=== PATIENT | female | born 1995 | race African-American/Black ===

== ENCOUNTER 2017-05-14 09:53 | Emergency (ER) | payer MEDICAID ==
[2016-04-07 05:18] VITALS: BMI 23.3
[~2017-05-14 09:53] MED LIST: COLACE100 MG PO; FERROUS SULFAT325 MG PO; IBUPROFEN600 MG PO; PERCOCET 5-3251 TAB PO; PRENATAL COMPLE1 TAB PO
[2017-05-14 11:00] LABS: BASOPHILS 0.3 % (0-2); EOSINOPHILS 0.4 % (0-7); HEMATOCRIT 37.8 % (36.0-48.0); HEMOGLOBIN 12.7 g/dL (12-16); IMMATURE GRANULOCYTES 0.3 % (0-5); LYMPHOCYTES 28.9 % (15-50); MCH 29.5 pg (26.0-34.0); MCHC 33.6 g/dL (31.0-37.0); MCV 87.9 fL (80.0-100.0); MEAN PLATELET VOLUME 10.2 fL (7.4-10.4); MONOCYTES 4.4 % (2-11); NEUTROPHILS 65.7 % (40-80); RDW 12.6 % (11.5-14.5); WBC 11.2 10x3/uL (4.8-10.8)
[2017-05-14 11:01] LABS: APPEARANCE CLOUDY (CLEAR); BILIRUBIN NEGATIVE (NEGATIVE); COLOR YELLOW (YELLOW); GLUCOSE NEGATIVE (NEGATIVE); KETONE MODERATE mg/dL (NEGATIVE); NITRITE NEGATIVE (NEGATIVE); PROTEIN 1+ mg/dL (NEGATIVE); SPECIFIC GRAVITY 1.025 (1.005-1.020); UROBILINOGEN NORMAL (NORMAL)
[2017-05-14 11:02] LABS: PLATELET COUNT 255 10x3/uL (130-400)
[2017-05-14 11:10] LABS: HCG SERUM NEGATIVE (NEGATIVE)
[2017-05-14 11:15] LABS: BACTERIA MANY /hpf (NONE SEEN); RED CELLS - URINE 0-5 /hpf (0-5)
[2017-05-14 11:16] LABS: ALBUMIN 4.2 g/dL (3.4-5.0); ALKALINE PHOSPHATASE 69 U/L (46-116); ALT (SGPT) 23 U/L (10-68); BILIRUBIN - TOTAL 0.32 mg/dL (0.2-1.3); CALC OSMOLALITY 278 mosm/kg (275-300); CALCIUM 8.9 mg/dL (8.5-10.1); CHLORIDE - SERUM 102 mmol/L (98-107); CREATININE - SERUM 0.8 mg/dL (0.6-1.3); GLUCOSE 115 mg/dL (74-106); POTASSIUM - SERUM 3.7 mmol/L (3.5-5.1); PROTEIN - SERUM 7.6 g/dL (6.4-8.2); SODIUM 139 mmol/L (136-145); UREA NITROGEN 12 mg/dL (7-18); eGFR NON AFRICAN AMERICAN > 90 mL/min (90-120)
== END 2017-05-14 12:50 | disposition home or self-care (01) ==
LOC: D.ER 09:53
PROVIDERS: Emergency Medicine
DX: R55 Syncope and collapse (principal); R11.10 Vomiting, unspecified; N39.0 Urinary tract infection, site not specified; N76.0 Acute vaginitis

== ENCOUNTER 2017-10-25 07:04 | Emergency (ER) | payer MEDICAID ==
[~2017-10-25] VITALS: Ht 165.1 cm; Wt 50.0 kg
[2017-10-25 07:29] VITALS: Ht 165.1 cm; Wt 50.0 kg
[2017-10-25 07:58] LABS: BASOPHILS 0.1 % (0-2); EOSINOPHILS 0.1 % (0-7); HEMATOCRIT 39.7 % (36.0-48.0); HEMOGLOBIN 13.1 g/dL (12-16); IMMATURE GRANULOCYTES 0.3 % (0-5); LYMPHOCYTES 6.5 % (15-50); MCH 29.8 pg (26.0-34.0); MCV 90.4 fL (80.0-100.0); MEAN PLATELET VOLUME 10.7 fL (7.4-10.4); MONOCYTES 5.9 % (2-11); NEUTROPHILS 87.1 % (40-80); RBC 4.39 10x6/uL (4.00-5.40); RDW 12.6 % (11.5-14.5); WBC 19.1 10x3/uL (4.8-10.8)
[2017-10-25 08:04] LABS: PLATELET COUNT 198 10x3/uL (130-400)
[2017-10-25 08:09] LABS: HCG URINE NEGATIVE (NEGATIVE)
[2017-10-25 08:15] LABS: APPEARANCE CLEAR (CLEAR); BILIRUBIN NEGATIVE (NEGATIVE); COLOR YELLOW (YELLOW); GLUCOSE NEGATIVE (NEGATIVE); KETONE NEGATIVE (NEGATIVE); NITRITE NEGATIVE (NEGATIVE); PROTEIN NEGATIVE (NEGATIVE); UROBILINOGEN NORMAL (NORMAL)
[2017-10-25 08:16] LABS: BACTERIA MODERATE /hpf (NONE SEEN); MUCUS <1+ /lpf (NONE SEEN); RED CELLS - URINE 0-5 /hpf (0-5); WHITE CELLS - URINE OCC /hpf (0-5)
[2017-10-25 08:17] LABS: ALBUMIN 4.2 g/dL (3.4-5.0); ALKALINE PHOSPHATASE 71 U/L (46-116); ALT (SGPT) 19 U/L (10-68); AMYLASE - SERUM 70 U/L (25-115); BILIRUBIN - TOTAL 0.38 mg/dL (0.2-1.3); CALC OSMOLALITY 282 mosm/kg (275-300); CALCIUM 8.6 mg/dL (8.5-10.1); CARBON DIOXIDE 26.6 mmol/L (21.0-32.0); CHLORIDE - SERUM 102 mmol/L (98-107); CREATININE - SERUM 0.7 mg/dL (0.6-1.3); LIPASE 119 U/L (73-393); POTASSIUM - SERUM 4.1 mmol/L (3.5-5.1); PROTEIN - SERUM 7.8 g/dL (6.4-8.2); SODIUM 140 mmol/L (136-145); UREA NITROGEN 12 mg/dL (7-18); eGFR NON AFRICAN AMERICAN > 90 mL/min (90-120)
[2017-10-25 08:21] LABS: GLUCOSE 178 mg/dL (74-106)
[2017-10-25] MEDS ORDERED: LOMOTIL TABLET1 TAB PO (08:27)
[2017-10-25] MEDS ORDERED: PHENERGAN25 MG RC (08:27)
[2017-10-25 10:45] VITALS: BP 111/39
== END 2017-10-25 10:45 | disposition home or self-care (01) ==
LOC: D.ER 07:04
PROVIDERS: Emergency Medicine
DX: K52.9 Noninfective gastroenteritis and colitis, unspecified (principal); R11.2 Nausea with vomiting, unspecified

== ENCOUNTER 2018-02-24 20:11 | Emergency (ER) | payer MEDICAID ==
[~2018-02-24] VITALS: Ht 165.1 cm; Wt 43.6 kg
[~2018-02-24 20:11] MED LIST changes: +LOMOTIL TABLET1 TAB PO; +PHENERGAN25 MG RC
[2018-02-24 20:12] VITALS: Ht 165.1 cm; Wt 43.6 kg
[2018-02-24 20:41] LABS: BASOPHILS 0 % (0-2); EOSINOPHILS 0.1 % (0-7); HEMOGLOBIN 11.4 g/dL (12-16); IMMATURE GRANULOCYTES 0.2 % (0-5); LYMPHOCYTES 12.7 % (15-50); MCH 29.7 pg (26.0-34.0); MCHC 34.5 g/dL (31.0-37.0); MCV 85.9 fL (80.0-100.0); MEAN PLATELET VOLUME 9.2 fL (7.4-10.4); MONOCYTES 4.2 % (2-11); NEUTROPHILS 82.8 % (40-80); PLATELET COUNT 188 10x3/uL (130-400); RBC 3.84 10x6/uL (4.00-5.40); RDW 12.3 % (11.5-14.5); WBC 9.5 10x3/uL (4.8-10.8)
[2018-02-24 20:55] LABS: ALBUMIN 3.7 g/dL (3.4-5.0); ALKALINE PHOSPHATASE 62 U/L (46-116); ALT (SGPT) 20 U/L (10-68); BILIRUBIN - TOTAL 0.32 mg/dL (0.2-1.3); CALC OSMOLALITY 267 mosm/kg (275-300); CALCIUM 9.7 mg/dL (8.5-10.1); CARBON DIOXIDE 25.3 mmol/L (21.0-32.0); CHLORIDE - SERUM 100 mmol/L (98-107); CREATININE - SERUM 0.6 mg/dL (0.6-1.3); POTASSIUM - SERUM 3.9 mmol/L (3.5-5.1); PROTEIN - SERUM 7.2 g/dL (6.4-8.2); SODIUM 135 mmol/L (136-145); UREA NITROGEN 6 mg/dL (7-18); eGFR NON AFRICAN AMERICAN > 90 mL/min (90-120)
[2018-02-24 21:00] LABS: GLUCOSE 95 mg/dL (74-106)
[2018-02-24 21:16] LABS: HCG - QUANTITATIVE (MATERNAL) 196903 mIU/mL
[2018-02-24 21:38] LABS: APPEARANCE CLEAR (CLEAR); COLOR YELLOW (YELLOW)
[2018-02-24 21:39] LABS: BILIRUBIN NEGATIVE (NEGATIVE); GLUCOSE NEGATIVE (NEGATIVE); KETONE MODERATE mg/dL (NEGATIVE); NITRITE NEGATIVE (NEGATIVE); PROTEIN NEGATIVE (NEGATIVE); RED CELLS - URINE NONE SEEN /hpf (0-5); SPECIFIC GRAVITY 1.005 (1.005-1.020); UROBILINOGEN NORMAL (NORMAL); WHITE CELLS - URINE NSEEN /hpf (0-5)
[2018-02-24 21:45] LABS: UDS - AMPHET NEGATIVE QUAL (NEGATIVE); UDS - BARB NEGATIVE QUAL (NEGATIVE); UDS - BENZO NEGATIVE QUAL (NEGATIVE); UDS - COCAINE NEGATIVE QUAL (NEGATIVE); UDS - OPIATE NEGATIVE QUAL (NEGATIVE); UDS - PCP NEGATIVE QUAL (NEGATIVE); UDS - THC POSITIVE QUAL (NEGATIVE)
[2018-02-24] MEDS ORDERED: ZOFRAN4 MG PO (22:05)
[2018-02-24 22:45] VITALS: BP 127/77
== END 2018-02-24 22:45 | disposition home or self-care (01) ==
LOC: D.ER 20:11
PROVIDERS: Family Medicine
DX: O21.9 Vomiting of pregnancy, unspecified (principal); Z3A.08 8 weeks gestation of pregnancy; E86.9 Volume depletion, unspecified

== ENCOUNTER 2018-03-10 09:37 | Emergency (ER) | payer MEDICAID ==
[~2018-03-10] VITALS: Ht 165.1 cm; Wt 43.2 kg
[~2018-03-10 09:37] MED LIST changes: +ZOFRAN4 MG PO
[2018-03-10 09:48] VITALS: Ht 165.1 cm; Wt 43.2 kg
[2018-03-10 10:43] LABS: BASOPHILS 0.2 % (0-2); EOSINOPHILS 0.3 % (0-7); HEMATOCRIT 36.5 % (36.0-48.0); HEMOGLOBIN 12.5 g/dL (12-16); IMMATURE GRANULOCYTES 0.7 % (0-5); LYMPHOCYTES 14.7 % (15-50); MCH 30.1 pg (26.0-34.0); MCHC 34.2 g/dL (31.0-37.0); MEAN PLATELET VOLUME 9.3 fL (7.4-10.4); MONOCYTES 5.1 % (2-11); PLATELET COUNT 204 10x3/uL (130-400); RBC 4.15 10x6/uL (4.00-5.40); WBC 9.6 10x3/uL (4.8-10.8)
[2018-03-10 10:54] LABS: APPEARANCE CLOUDY (CLEAR); BILIRUBIN NEGATIVE (NEGATIVE); COLOR YELLOW (YELLOW); EPITHELIAL CELLS 0-5 /hpf (0-5); GLUCOSE NEGATIVE (NEGATIVE); KETONE NEGATIVE (NEGATIVE); NITRITE NEGATIVE (NEGATIVE); PROTEIN NEGATIVE (NEGATIVE); RED CELLS - URINE NONE SEEN /hpf (0-5); SPECIFIC GRAVITY 1.005 (1.005-1.020); UROBILINOGEN NORMAL (NORMAL); WHITE CELLS - URINE NSEEN /hpf (0-5)
[2018-03-10 10:54] LABS: HCG SERUM POSITIVE (NEGATIVE)
[2018-03-10 11:04] LABS: ALBUMIN 3.5 g/dL (3.4-5.0); ALKALINE PHOSPHATASE 60 U/L (46-116); ALT (SGPT) 16 U/L (10-68); AMYLASE - SERUM 95 U/L (25-115); BILIRUBIN - TOTAL 0.17 mg/dL (0.2-1.3); CALC OSMOLALITY 264 mosm/kg (275-300); CALCIUM 9.2 mg/dL (8.5-10.1); CARBON DIOXIDE 25.9 mmol/L (21.0-32.0); CHLORIDE - SERUM 99 mmol/L (98-107); CREATININE - SERUM 0.4 mg/dL (0.6-1.3); GLUCOSE 89 mg/dL (74-106); LIPASE 149 U/L (73-393); POTASSIUM - SERUM 3.8 mmol/L (3.5-5.1); PROTEIN - SERUM 7.7 g/dL (6.4-8.2); SODIUM 134 mmol/L (136-145); UREA NITROGEN 8 mg/dL (7-18); eGFR NON AFRICAN AMERICAN > 90 mL/min (90-120)
[2018-03-10] MEDS ORDERED: ZOFRAN4 MG PO (13:55)
[2018-03-10 14:16] VITALS: BP 129/67
== END 2018-03-10 14:15 | disposition home or self-care (01) ==
LOC: D.ER 09:37
PROVIDERS: Family Medicine
DX: O21.0 Mild hyperemesis gravidarum (principal); Z3A.00 Weeks of gestation of pregnancy not specified

== ENCOUNTER 2018-03-23 16:31 | Emergency (ER) | payer MEDICAID ==
[~2018-03-23] VITALS: Ht 165.1 cm; Wt 46.8 kg
[2018-03-23 16:47] VITALS: Ht 165.1 cm; Wt 46.8 kg
[2018-03-23 17:08] LABS: BASOPHILS 0.1 % (0-2); EOSINOPHILS 0.3 % (0-7); HEMATOCRIT 34.5 % (36.0-48.0); HEMOGLOBIN 11.5 g/dL (12-16); IMMATURE GRANULOCYTES 0.5 % (0-5); LYMPHOCYTES 9.5 % (15-50); MCH 29.9 pg (26.0-34.0); MCHC 33.3 g/dL (31.0-37.0); MCV 89.8 fL (80.0-100.0); MEAN PLATELET VOLUME 9.2 fL (7.4-10.4); NEUTROPHILS 83.6 % (40-80); PLATELET COUNT 169 10x3/uL (130-400); RBC 3.84 10x6/uL (4.00-5.40); RDW 12.8 % (11.5-14.5); WBC 14.8 10x3/uL (4.8-10.8)
[2018-03-23 17:22] LABS: ALBUMIN 2.8 g/dL (3.4-5.0); ALKALINE PHOSPHATASE 52 U/L (46-116); ALT (SGPT) 13 U/L (10-68); BILIRUBIN - TOTAL 0.07 mg/dL (0.2-1.3); CALC OSMOLALITY 274 mosm/kg (275-300); CALCIUM 7.9 mg/dL (8.5-10.1); CARBON DIOXIDE 24.4 mmol/L (21.0-32.0); CHLORIDE - SERUM 104 mmol/L (98-107); CREATININE - SERUM 0.5 mg/dL (0.6-1.3); GLUCOSE 84 mg/dL (74-106); POTASSIUM - SERUM 3.3 mmol/L (3.5-5.1); PROTEIN - SERUM 6.4 g/dL (6.4-8.2); SODIUM 139 mmol/L (136-145); UREA NITROGEN 7 mg/dL (7-18); eGFR NON AFRICAN AMERICAN > 90 mL/min (90-120)
[2018-03-23 17:44] LABS: HCG - QUANTITATIVE (MATERNAL) 103845 mIU/mL
[2018-03-23 17:54] LABS: APPEARANCE HAZY (CLEAR); BILIRUBIN NEGATIVE (NEGATIVE); COLOR YELLOW (YELLOW); GLUCOSE NEGATIVE (NEGATIVE); KETONE NEGATIVE (NEGATIVE); NITRITE NEGATIVE (NEGATIVE); PROTEIN NEGATIVE (NEGATIVE); UROBILINOGEN NORMAL (NORMAL)
[2018-03-23 17:56] LABS: AMORPHOUS SEDIMENT >1+ /lpf (NONE SEEN); BACTERIA MODERATE /hpf (NONE SEEN); EPITHELIAL CELLS 0-5 /hpf (0-5); RED CELLS - URINE 0-5 /hpf (0-5); WHITE CELLS - URINE 0-5 /hpf (0-5)
[2018-03-23] MEDS ORDERED: ZOFRAN4 MG PO (19:02)
[2018-03-23 20:02] VITALS: BP 112/61
== END 2018-03-23 20:03 | disposition home or self-care (01) ==
LOC: D.ER 16:31
PROVIDERS: Family Medicine
DX: O21.0 Mild hyperemesis gravidarum (principal); Z3A.12 12 weeks gestation of pregnancy

== ENCOUNTER 2018-04-12 09:45 | Inpatient (IN) | payer MEDICAID ==
[~2018-04-12] VITALS: Ht 165.1 cm; Wt 50.8 kg
[2018-04-12 12:30] VITALS: BP 122/71
[2018-04-12 16:49] LABS: UDS - AMPHET NEGATIVE QUAL (NEGATIVE); UDS - BARB NEGATIVE QUAL (NEGATIVE); UDS - BENZO NEGATIVE QUAL (NEGATIVE); UDS - COCAINE NEGATIVE QUAL (NEGATIVE); UDS - OPIATE NEGATIVE QUAL (NEGATIVE); UDS - PCP NEGATIVE QUAL (NEGATIVE); UDS - THC POSITIVE QUAL (NEGATIVE)
[2018-04-12 16:56] LABS: AMORPHOUS SEDIMENT <1+ /lpf (NONE SEEN); APPEARANCE HAZY (CLEAR); BACTERIA FEW /hpf (NONE SEEN); BILIRUBIN NEGATIVE (NEGATIVE); COLOR YELLOW (YELLOW); GLUCOSE NEGATIVE (NEGATIVE); KETONE NEGATIVE (NEGATIVE); NITRITE NEGATIVE (NEGATIVE); PROTEIN NEGATIVE (NEGATIVE); RED CELLS - URINE OCC /hpf (0-5); SPECIFIC GRAVITY 1.015 (1.005-1.020); UROBILINOGEN NORMAL (NORMAL); WHITE CELLS - URINE OCC /hpf (0-5)
[2018-04-12 18:48] VITALS: Ht 165.1 cm; Wt 50.8 kg
--- NOTE | 2018-04-13 07:32 | NUR ---
DR. FERREIRA IN ROOM SPEAKING WITH PT. REVIEWS PLACENTA, WITH TELEPHONE ORDER GIVEN TO VALERIE CELESTE RN FOR PT TO DISCHARGE HOME. LEAVES PRESCRIPTIONS X 3 ON CHART.
[2018-04-13] MEDS ORDERED: CYTOTEC200 MCG (09:12)
[2018-04-13] MEDS ORDERED: NORCO 5/325 TAB1 TAB PO (09:12)
[2018-04-13] MEDS ORDERED: IBUPROFEN800 MG PO (09:18)
--- NOTE | 2018-04-13 17:16 | DS ---
PATIENT:DIONNE VALENTE :[birth year] MEDICAL RECORD: [id number] DISCHARGE SUMMARY ADMISSION DATE: 04/12/18 DISCHARGE DATE: 04/13/18 ADMISSION DATE: 04/12/2018. DISCHARGE DATE: 04/13/2018. ADMISSION DIAGNOSIS: Intrauterine demise at 15 weeks. DISCHARGE DIAGNOSES: 1. Intrauterine demise at 15 weeks. 2. Status post medically induced . PROCEDURE: Medically induced with Cytotec. ADMITTING PHYSICIAN: Dr. Pedro. DISCHARGING PHYSICIAN: Dr. Ferreira HISTORY OF PRESENT ILLNESS: See the H&P in the chart. SUMMARY OF HOSPITALIZATION: The patient was admitted to the hospital and received misoprostol. The patient went on to expel the fetus spontaneously. The placenta was retained and she received 2 doses of Hemabate with the subsequent delivery of placenta. The patient will be discharged home on oral Cytotec to assist with involution of the uterus as well as ibuprofen and [place] for pain. TRANSINT:[id number] Voice Confirmation ID: [id number] DOCUMENT ID: [id number] CHEVY FERREIRA MD at 1716 CC: [id number] DICTATION DATE: 04/13/18 0726 CERTIFIED INDUSTRIAL HYGIENIST: 04/13/18 0849 DIS IN 04/13/18 [facility] [address] [place] [address]
== END 2018-04-13 10:07 | disposition home or self-care (01) | DRG 779 ==
LOC: D.LD 09:45
PROVIDERS: ADMIT Obstetrics & Gynecology
PROC: 10E0XZZ Delivery of Products of Conception, External Approach (ICD-10-PCS; principal; 2018-04-12)
PROC: 3E0P7VZ Introduction of Hormone into Female Reproductive, Via Natural or Artificial Opening (ICD-10-PCS; 2018-04-12)
DX: O02.1 Missed abortion (principal); Z87.891 Personal history of nicotine dependence

== ENCOUNTER 2018-12-05 06:39 | Emergency (ER) | payer MEDICAID ==
[~2018-12-05] VITALS: Ht 165.1 cm; Wt 48.2 kg
[~2018-12-05 06:39] MED LIST changes: +CYTOTEC200 MCG; +IBUPROFEN800 MG PO; +NORCO 5/325 TAB1 TAB PO
[2018-12-05 06:50] VITALS: Ht 165.1 cm; Wt 48.2 kg
[2018-12-05 07:30] LABS: APPEARANCE CLOUDY (CLEAR); BACTERIA FEW /hpf (NONE SEEN); BILIRUBIN NEGATIVE (NEGATIVE); COLOR YELLOW (YELLOW); EPITHELIAL CELLS 0-5 /hpf (0-5); GLUCOSE NEGATIVE (NEGATIVE); KETONE NEGATIVE (NEGATIVE); NITRITE NEGATIVE (NEGATIVE); PROTEIN NEGATIVE (NEGATIVE); RED CELLS - URINE OCC /hpf (0-5); UROBILINOGEN NORMAL (NORMAL)
[2018-12-05 07:31] LABS: MUCUS <1+ /lpf (NONE SEEN); YEAST <1+ /hpf (NONE SEEN)
[2018-12-05 07:38] LABS: BASOPHILS 0.2 % (0-2); EOSINOPHILS 0.9 % (0-7); HEMATOCRIT 32.5 % (36.0-48.0); HEMOGLOBIN 11.1 g/dL (12-16); IMMATURE GRANULOCYTES 0.2 % (0-5); LYMPHOCYTES 19.7 % (15-50); MCHC 34.2 g/dL (31.0-37.0); MCV 81.9 fL (80.0-100.0); MEAN PLATELET VOLUME 9.3 fL (7.4-10.4); MONOCYTES 5.7 % (2-11); NEUTROPHILS 73.3 % (40-80); PLATELET COUNT 168 10x3/uL (130-400); RBC 3.97 10x6/uL (4.00-5.40); WBC 6.5 10x3/uL (4.8-10.8)
[2018-12-05 07:52] LABS: ALBUMIN 3.2 g/dL (3.4-5.0); ALKALINE PHOSPHATASE 64 U/L (46-116); ALT (SGPT) 8 U/L (10-68); AMYLASE - SERUM 62 U/L (25-115); BILIRUBIN - TOTAL 0.18 mg/dL (0.2-1.3); CALC OSMOLALITY 268 mosm/kg (275-300); CALCIUM 8.9 mg/dL (8.5-10.1); CARBON DIOXIDE 25.1 mmol/L (21.0-32.0); CHLORIDE - SERUM 102 mmol/L (98-107); CREATININE - SERUM 0.6 mg/dL (0.6-1.3); GLUCOSE 81 mg/dL (74-106); LIPASE 112 U/L (73-393); POTASSIUM - SERUM 3.6 mmol/L (3.5-5.1); PROTEIN - SERUM 7.2 g/dL (6.4-8.2); SODIUM 136 mmol/L (136-145); UREA NITROGEN 7 mg/dL (7-18); eGFR NON AFRICAN AMERICAN > 90 mL/min (90-120)
[2018-12-05 08:39] LABS: HCG URINE POSITIVE (NEGATIVE)
[2018-12-05] MEDS ORDERED: MONISTAT-7 VAG45 G1 VG (09:02)
[2018-12-05] MEDS ORDERED: MACROBID100 MG PO (09:02)
[2018-12-05] MEDS ORDERED: KEFLEX500 MG PO (09:02)
[2018-12-05 09:28] VITALS: BP 138/68
== END 2018-12-05 09:30 | disposition home or self-care (01) ==
LOC: D.ER 06:39
PROVIDERS: Family Medicine
DX: O23.42 Unspecified infection of urinary tract in pregnancy, second trimester (principal); Z3A.00 Weeks of gestation of pregnancy not specified; R10.30 Lower abdominal pain, unspecified

== ENCOUNTER → 2019-03-25 01:44 | Outpatient (CLI) | payer MEDICAID ==
[2018-12-05 06:50] VITALS: BMI 17.6
[~2019-03-25 01:44] MED LIST changes: +KEFLEX500 MG PO; +MACROBID100 MG PO; +MONISTAT-7 VAG45 G1 VG
[2019-03-25 02:29] LABS: APPEARANCE HAZY (CLEAR); BACTERIA NONE SEEN /hpf (NEGATIVE); BILIRUBIN NEGATIVE (NEGATIVE); COLOR YELLOW (YELLOW); EPITHELIAL CELLS NSEEN /hpf (0-5); GLUCOSE NEGATIVE (NEGATIVE); KETONE NEGATIVE (NEGATIVE); NITRITE NEGATIVE (NEGATIVE); PROTEIN NEGATIVE (NEGATIVE); SPECIFIC GRAVITY 1.015 (1.005-1.020); UROBILINOGEN NORMAL (NORMAL); WHITE CELLS - URINE 0-5 /hpf (NEGATIVE)
[2019-03-25 02:38] LABS: UDS - AMPHET NEGATIVE QUAL (NEGATIVE); UDS - BARB NEGATIVE QUAL (NEGATIVE); UDS - BENZO NEGATIVE QUAL (NEGATIVE); UDS - COCAINE NEGATIVE QUAL (NEGATIVE); UDS - OPIATE NEGATIVE QUAL (NEGATIVE); UDS - PCP NEGATIVE QUAL (NEGATIVE); UDS - THC POSITIVE QUAL (NEGATIVE)
== END | disposition home or self-care (01) ==
LOC: D.LDO 01:44
PROVIDERS: ATTEND Obstetrics & Gynecology
DX: O26.893 Other specified pregnancy related conditions, third trimester (principal); Z3A.28 28 weeks gestation of pregnancy; R10.9 Unspecified abdominal pain; M54.5 Low back pain

== ENCOUNTER → 2019-03-28 16:43 | Outpatient (CLI) | payer MEDICAID ==
[2018-12-05 06:50] VITALS: BMI 17.6
== END | disposition home or self-care (01) ==
LOC: D.LDO 16:43
PROVIDERS: ATTEND Student in an Organized Health Care Education/Training Program
DX: O36.8130 Decreased fetal movements, third trimester, not applicable or unspecified (principal); Z3A.29 29 weeks gestation of pregnancy

== ENCOUNTER 2019-04-07 10:46 | Emergency (ER) | payer MEDICAID ==
[2019-04-07 10:50] VITALS: BP 122/88; Ht 165.1 cm
== END 2019-04-07 13:19 | disposition left against medical advice (07) ==
LOC: D.ER 10:46
DX: R05 Cough (principal); R06.02 Shortness of breath; R11.0 Nausea

== ENCOUNTER → 2019-04-09 11:44 | Outpatient (CLI) | payer MEDICAID | END | disposition home or self-care (01) | LOC: D.LDO 11:44 | PROVIDERS: ATTEND Obstetrics & Gynecology | DX: O26.893 Other specified pregnancy related conditions, third trimester (principal); Z3A.31 31 weeks gestation of pregnancy; J11.1 Influenza due to unidentified influenza virus with other respiratory manifestations ==

== ENCOUNTER 2019-06-04 05:06 | Inpatient (IN) | payer MEDICAID ==
[~2019-06-04] VITALS: Ht 165.1 cm; Wt 64.9 kg
[2019-06-04 05:16] VITALS: BP 121/63; Ht 165.1 cm; Wt 64.9 kg
[2019-06-04 05:46] LABS: HEMATOCRIT 32.1 % (36.0-48.0); HEMOGLOBIN 10.6 g/dL (12-16); MCH 30.5 pg (26.0-34.0); MCV 92.5 fL (80.0-100.0); MEAN PLATELET VOLUME 9.1 fL (7.4-10.4); RBC 3.47 10x6/uL (4.00-5.40); RDW 14.2 % (11.5-14.5); WBC 9.3 10x3/uL (4.8-10.8)
[2019-06-04 06:03] LABS: BILIRUBIN NEGATIVE (NEGATIVE); GLUCOSE NEGATIVE (NEGATIVE); KETONE NEGATIVE (NEGATIVE); NITRITE NEGATIVE (NEGATIVE); SPECIFIC GRAVITY 1.015 (1.005-1.020); UROBILINOGEN NORMAL (NORMAL)
[2019-06-04 19:25] VITALS: BP 129/60
--- NOTE | 2019-06-04 20:15 | NUR ---
assisted up to br voided 600ml, assisted w/ pericare, iv converted to sl. ice packs and dermablast applied to arie area, transported to room 1257 via wc with sig other and baby
--- NOTE | 2019-06-04 21:30 | NUR ---
resting quietly in room with fob. non needs voiced at this time
--- NOTE | 2019-06-04 22:30 | NUR ---
w/o c/o at this time. no needs voiced.
--- NOTE | 2019-06-05 00:19 | NUR ---
sitting up in bed, ice packs given for arie area, no further needs voiced at this time
--- NOTE | 2019-06-05 02:18 | NUR ---
continues to sit up with fob, alert, w/o c/o pain or discomfort. no needs voiced
--- NOTE | 2019-06-05 04:17 | NUR ---
sitting up in bed holding , no needs voiced at this time
--- NOTE | 2019-06-05 04:32 | NUR ---
pt medicated for pain at 11/17. pt states that she is cramping. molly andre rn
[2019-06-05 06:09] LABS: RAPID PLASMA REAGIN Non Reactive (Non Reactive)
[2019-06-05 07:27] VITALS: BP 126/60
--- NOTE | 2019-06-05 07:27 | NUR ---
RECEIVED PT LYING SUPINE IN BED. REPOSITIONS MORE UP IN BED. PT DROWSY, BUT AAO X 3. VSS. HRRR WITHOUT AUDIBLE MURMUR. BBS CLEAR. BS HYPOACTIVE. ABDOMEN SOFT/NON-DISTENDED. FUNDUS FIRM AT U/1. RUBRA LOCHIA SCANT AMT. ABDOMINAL DRESSING DRY WITHOUT DRAINAGE NOTED. NEG HOMANS' SIGN. PPP. NO EDEMA NOTED TO BLE. SCDS ON BLE. PUMP ON. PIV SITE CLEAR TO LEFT HAND. NS WITH PITOCIN INFUSING AT 125 ML/HR. DILAUDID PL SQL PROGRAMMER INFUSING ORDERED. PT STATES INCISIONAL PAIN OF "5" ON 0-10 PAIN SCALE. STATES PAIN MED RELIEVING PAIN. RAY TO GRAVITY DRAINING CLEAR, YELLOW URINE. FRESH ICE PACK TO INCISION. PT PROVIDED SPLINT PILLOW AND INSTRUCTED ON TCDB AND INCENTIVE SPIROMETER. PT VERBALIZES UNDERSTANDING. SR UP X 2. CALL LIGHT IN REACH. CLEAR LIQUID DIET SERVED. PT DENIES NAUSEA.
[2019-06-05 07:48] LABS: BASOPHILS 0.2 % (0-2); EOSINOPHILS 0.5 % (0-7); HEMATOCRIT 28.9 % (36.0-48.0); HEMOGLOBIN 9.3 g/dL (12-16); IMMATURE GRANULOCYTES 0.4 % (0-5); LYMPHOCYTES 18.6 % (15-50); MCH 29.8 pg (26.0-34.0); MCHC 32.2 g/dL (31.0-37.0); MCV 92.6 fL (80.0-100.0); MEAN PLATELET VOLUME 8.9 fL (7.4-10.4); MONOCYTES 7.2 % (2-11); NEUTROPHILS 73.1 % (40-80); PLATELET COUNT 160 10x3/uL (130-400); RBC 3.12 10x6/uL (4.00-5.40); RDW 14.2 % (11.5-14.5)
--- NOTE | 2019-06-05 08:00 | NUR ---
RECEIVED PT LYING SUPINE IN BED. HOLDING WITH MUCH WARMTH SHOWN. INFANT TO FOB. PT VSS. HRRR WITHOUT AUDIBLE MURMUR. BBS CLEAR. BS X 4. ABDOMEN SOFT/NON-DISTENDED. FUNDUS FIRM AT U/1. RUBRA LOCHIA SMALL AMT. NO CLOTS OR HEAVY BLEEDING PER PT STATES. PT INSTRUCTED TO NOTIFY NURSE OF PASSING CLOTS OR SOAKING PAD IN ONE HOUR. PT VERBALIZES UNDERSTANDING. PERINEUM WITHOUT EDEMA. NEG HOMANS' SIGN. PPP. NO EDEMA NOTED TO BLE. SL TO RIGHT FOREARM CLEAR. PT C/O BACK PAIN AND CRAMPING OF "7" ON 0-10 PAIN SCALE. PT OOB AND AMB TO BR TO VOID AT THIS TIME. FOB IN ROOM WITH PT.
--- NOTE | 2019-06-05 08:20 | NUR ---
DR MORILLO VISITS WITH PT.
--- NOTE | 2019-06-05 08:46 | NUR ---
PT AVIATION ENGINEER LIGHT. REQUESTS AND RECEIVES NORCO 5/325 AND MOTRIN 600 MG PO ORDERED. PT INSTRUCTED ON MEDS. VERBALIZES UNDERSTANDING.
--- NOTE | 2019-06-05 09:30 | NUR ---
PT SITTING UP IN BED. VISITS WITH FAMILY. STATES PAIN MED RELIEVING PAIN. DENIES NEEDS OR C/O AT THIS TIME.
[2019-06-05 11:20] VITALS: BP 111/70
--- NOTE | 2019-06-05 11:20 | NUR ---
PT SITTING UP IN BED. WATCHES TV. VSS. PT DENIES HEAVY BLEEDING OR PASSING CLOTS. DENIES NEEDS OR C/O.
--- NOTE | 2019-06-05 13:17 | NUR ---
PT SITTING UP IN BED. HOLDS WITH MUCH WARMTH SHOWN. STATES PAIN "5" ON 0-10 PAIN SCALE. DECLINES PAIN MED AT THIS TIME. STATES "I CAN WAIT, IT'S NOT THAT BAD". STATES "I WANT TO TAKE THEM BOTH (IBUPROFEN AND NORCO) TOGETHER". PT DENIES NEEDS AT THIS TIME.
--- NOTE | 2019-06-05 15:03 | NUR ---
PT SITTING UP IN BED. VISITS WITH SO. C/O ABDOMINAL CRAMPING OF "7" ON 0-10 PAIN SCALE. NORCO 5/325 AND MOTRIN 600 MG GIVEN PO ORDERED. PT INSTRUCTED ON MEDS. VERBALIZES UNDERSTANDING.
--- NOTE | 2019-06-05 15:53 | NUR ---
PT SITTING UP IN BED. ON PHONE. STATES PAIN NOW "2" ON 0-10 PAIN SCALE.
[2019-06-05 16:40] VITALS: BP 118/71
--- NOTE | 2019-06-05 16:40 | NUR ---
VSS. FUNDUS FIRM AT U/1. RUBRA LOCHIA SMALL AMT. PT DENIES HEAVY BLEEDING OR PASSING CLOTS. DENIES NEEDS OR C/O.
--- NOTE | 2019-06-05 18:30 | NUR ---
PT AMBULATORY IN ROOM. VISITS WITH FAMILY. DENIES C/O PAIN OR NEEDS.
[2019-06-05 20:29] VITALS: BP 113/67
--- NOTE | 2019-06-05 20:30 | NUR ---
PT REC'D IN BED AT THIS TIME WITH COMPLAINTS OF CRAMPING AT A 7/10. FUNDUS FIRM AND MIDLINE WITH SMALL LOCHIA NOTED. NO DISTRESS NOTED. SEE FLOWSHEET FOR ADDITIONAL CHARTING. Arie CELESTE RN
--- NOTE | 2019-06-05 22:10 | NUR ---
PT RESTING AT THIS TIME. STATES THAT PAIN IS A 2/10. WILL CONTINUE TO MONITOR. Arie CELESTE RN
--- NOTE | 2019-06-06 00:40 | NUR ---
PT RESTING WITHOUT COMPALAINTS. WILL CONTINUE TO MONITOR. Arie CELESTE RN
--- NOTE | 2019-06-06 05:00 | NUR ---
PT RESTING WELL AT THIS TIME. WITH S/O AT THE BEDSIDE. Arie CELESTE RN
[2019-06-06 07:55] VITALS: BP 121/77
--- NOTE | 2019-06-06 07:55 | NUR ---
THIS RN TO ROOM FOR SHIFT ASSESSMENT. PT SITTING UP IN BED, AAOx3. SIG OTHER AT BEDSIDE WITH . VSS, SHIFT ASSESSMENT COMPLETED, SEE FLOWSHEET FOR DOC. PT RATES PAIN 7/10, LOWER BACK PAIN WITH CRAMPING. EPIDURAL SITE CHECKED AND NOTED TO BE C/D WITH NO BRUISING OR HEMATOMA NOTED. FF, ML, U/2. SMALL RUBRA LOCHIA, NO CLOTS. PT DENIES CONCERNS WITH HEAVY LOCHIA OR CLOTS, INSTRUCTED ON S/S TO REPORT. UNDERSTANDING VERBALIZED. RIGHT FA PIV NOTED TO BE TENDER AND RED. LABS REVIEWED. WILL REMOVE. MILD GENERALIZED EDEMA NOTED TO LE BILAT, NON-PITTING. PEDAL PULSES 2+ BILAT, NEG HOMANS SIGN BILAT. PT INSTRUCTED ON S/S TO REPORT REGARDING DVT, UNDERSTANDING VERBALIZED. WILL PROCEED WITH PAIN WATER MECHANIC AND IV REMOVAL. SRUx2, CL IN REACH.
--- NOTE | 2019-06-06 08:10 | NUR ---
NORCO ADMIN ORDERED PRN, SEE EMAR FOR DOC. PT ALSO PROVIDED WITH FRESH ICE WATER. AVAILABLE MED TIMES UPDATED ON WHITE BOARD. RIGHT FA PIV REMOVED PER REDNESS AND TENDERNESS. REMOVED WITHOUT INCIDENT, CATH TIP INTACT, PRESSURE HELD AND BANAID APPLIED. PT DENIES FURTHER NEEDS AT THIS TIME. SRUx2, CL IN REACH. SIG OTHER AT BEDSIDE HOLDING .
--- NOTE | 2019-06-06 09:45 | NUR ---
THIS RN TO ROOM FOR PT CHECK. PT SITTING UP IN BED WITH SIG OTHER. REPORTS PAIN RELIEF FROM NORCO, RATES PAIN 4/10, DENIES NEED FOR IBUPROFEN. PT ASKING WHEN SHE WILL D/C HOME, STATES SHE IS READY TO GO WHEN POSSIBLE. INFORMED WAITING ON SITE SAFETY COORDINATOR TO ROUND TO DISCHARGE . UNDERSTANDING VERBALIZED, DENIES NEEDS. SRUx2, CL IN REACH.
--- NOTE | 2019-06-06 10:45 | NUR ---
PT CALLS OUT SUPERVISOR INSTRUMENT MECHANICS LIGHT, REQUESTING 2 COCA RADHA. PROVIDED TO PT BY ROBINA CHRISTIANSON. PT DENIES FURTHER NEEDS .
--- NOTE | 2019-06-06 12:40 | NUR ---
THIS RN TO ROOM FOR PT CHECK AND DISCHARGE TEACHING. PT SITTING UP IN BED, EATING LUNCH. PT GIVEN DISCHARGE INSTRUCTIONS, VERBALIZES UNDERSTANDING AND DENIES QUESTIONS. PT ALSO GIVEN PRESCRIPTION PROVIDED BY DR MORILLO FOR PAIN CONTROL POST D/C TO HOME. PT SIGNS CHART COPIES. PT C/O WHAT SHE STATES SHE THINKS IS GAS PAIN IN UPPER ABD, STATES "I THINK I FEEL GAS BUBBLES." WILL ADMIN SIMETHICONE. PT ALSO REQUESTING TO HAVE HER MOTRIN AND NORCO FOR WORSENING ABD CRAMPING, RATED 6/10 AT THIS TIME. WILL ADMIN MEDS ORDERED, SEE EMAR DOC.
--- NOTE | 2019-06-06 16:15 | NUR ---
PT RINGS LIGHT AND STATES THAT SHE IS READY FOR DISCHARGE AND W/C TO AUTO. DISCHARGED TO HOME WITH INFANT VIA W/C. STABLE
--- NOTE | 2019-06-06 17:58 | MORECARE ---
CASE MANAGEMENT DISCHARGE SUMMARY PATIENT: DIONNE VALENTE UNIT: [id number] ADM DATE: 06/04/19 AGE: 23 : [birth year] SEX: F ROOM/BED: D.1257 AUTHOR: ZINA CONROY PHYSICIAN: REFERRING PHYSICIAN: JESSICA MORILLO MD DATE OF SERVICE: 06/06/19 Discharge Plan Patient Name: DIONNE VALENTE Facility: [facility]:[place] : 1995 Planned Disposition: Home Anticipated Discharge Date: 06/06/19 Discharge Date: Expected LOS: 2 Initial Reviewer: [email or web address] Initial Review Date: 06/04/2019 Generated: 06/06/19 6:57 pm Patient Name: DIONNE VALENTE Page [phone] at 1758 All edits/amendments must be made on the electronic document DICTATION DATE: 06/06/191756 SENSOR SPECIALIST: DRU 06/06/191756 RPT#: [id number] DC DATE: STATUS: ADM IN [facility] [address] [place] [address] END OF REPORT
== END 2019-06-06 21:50 | disposition home or self-care (01) | DRG 807 ==
LOC: D.LD 05:06
PROVIDERS: ADMIT Obstetrics & Gynecology; ATTEND Obstetrics & Gynecology
PROC: 10E0XZZ Delivery of Products of Conception, External Approach (ICD-10-PCS; principal; 2019-06-04)
PROC: 3E033VJ Introduction of Other Hormone into Peripheral Vein, Percutaneous Approach (ICD-10-PCS; 2019-06-04)
DX: O71.82 Other specified trauma to perineum and vulva (principal); Z37.0 Single live birth; Z3A.39 39 weeks gestation of pregnancy

== ENCOUNTER 2019-09-04 13:09 | Emergency (ER) | payer MEDICAID ==
[~2019-09-04] VITALS: Ht 165.1 cm; Wt 54.5 kg
[2019-09-04 13:26] VITALS: BP 170/66; Ht 165.1 cm; Wt 54.5 kg
[2019-09-04 14:29] LABS: BASOPHILS 0.1 % (0-2); EOSINOPHILS 0 % (0-7); HEMATOCRIT 40.3 % (36.0-48.0); HEMOGLOBIN 13.3 g/dL (12-16); IMMATURE GRANULOCYTES 0.3 % (0-5); LYMPHOCYTES 6.4 % (15-50); MCH 29.2 pg (26.0-34.0); MCV 88.6 fL (80.0-100.0); MEAN PLATELET VOLUME 9.3 fL (7.4-10.4); MONOCYTES 3.2 % (2-11); RBC 4.55 10x6/uL (4.00-5.40)
[2019-09-04 14:33] LABS: PLATELET COUNT 223 10x3/uL (130-400)
[2019-09-04 14:40] LABS: CALC OSMOLALITY 277 mosm/kg (275-300); CALCIUM 9.6 mg/dL (8.5-10.1); CARBON DIOXIDE 21.9 mmol/L (21.0-32.0); CHLORIDE - SERUM 100 mmol/L (98-107); CREATININE - SERUM 0.9 mg/dL (0.6-1.3); GLUCOSE 102 mg/dL (74-106); POTASSIUM - SERUM 3.9 mmol/L (3.5-5.1); SODIUM 138 mmol/L (136-145); UREA NITROGEN 18 mg/dL (7-18); eGFR NON AFRICAN AMERICAN 83 mL/min (90-120)
[2019-09-04 14:46] LABS: ALKALINE PHOSPHATASE 85 U/L (30-120); ALT (SGPT) 28 U/L (10-68); AMYLASE - SERUM 41 U/L (25-115); BILIRUBIN - TOTAL 0.52 mg/dL (0.2-1.3)
[2019-09-04 14:47] LABS: LIPASE 32 U/L (73-393)
== END 2019-09-04 15:58 | disposition home or self-care (01) ==
LOC: D.ER 13:09
PROVIDERS: Family Medicine
DX: F10.129 Alcohol abuse with intoxication, unspecified (principal); Y90.9 Presence of alcohol in blood, level not specified; K21.9 Gastro-esophageal reflux disease without esophagitis

== ENCOUNTER 2019-10-05 10:08 | Emergency (ER) | payer MEDICAID ==
[~2019-10-05] VITALS: Ht 165.1 cm; Wt 54.5 kg
[2019-10-05 10:17] VITALS: BP 159/87; Ht 165.1 cm; Wt 54.5 kg
[2019-10-05 10:27] LABS: BILIRUBIN NEGATIVE (NEGATIVE); GLUCOSE NEGATIVE (NEGATIVE); KETONE NEGATIVE (NEGATIVE); NITRITE POSITIVE (NEGATIVE); UROBILINOGEN NORMAL (NORMAL)
[2019-10-05 10:30] LABS: BACTERIA MANY /hpf (NEGATIVE); EPITHELIAL CELLS 0-5 /hpf (0-5); RED CELLS - URINE OCC /hpf (0-5)
[2019-10-05] MEDS ORDERED: BUTALB-APAP-CA1 EACH PO (10:51)
[2019-10-05] MEDS ORDERED: KEFLEX500 MG PO (10:51)
== END 2019-10-05 12:03 | disposition home or self-care (01) ==
LOC: D.ER 10:08
PROVIDERS: Family Medicine
DX: R51 Headache (principal); N39.0 Urinary tract infection, site not specified; K21.9 Gastro-esophageal reflux disease without esophagitis

== ENCOUNTER 2019-10-13 10:57 | Emergency (ER) | payer MEDICAID ==
[~2019-10-13] VITALS: Ht 165.1 cm; Wt 54.5 kg
[~2019-10-13 10:57] MED LIST changes: +BUTALB-APAP-CA1 EACH PO
[2019-10-13 11:18] VITALS: Ht 165.1 cm; Wt 54.5 kg
== END 2019-10-13 14:02 | disposition left against medical advice (07) ==
LOC: D.ER 10:57
DX: R51 Headache (principal)

== ENCOUNTER 2020-08-21 17:13 | Emergency (ER) | payer MEDICAID ==
[~2020-08-21] VITALS: Ht 165.1 cm; Wt 49.1 kg
[2020-08-21 17:23] VITALS: Ht 165.1 cm; Wt 49.1 kg
[2020-08-21 17:54] LABS: BASOPHILS 0 % (0-2); EOSINOPHILS 0 % (0-7); HEMATOCRIT 38.5 % (36.0-48.0); HEMOGLOBIN 12.7 g/dL (12-16); IMMATURE GRANULOCYTES 0.2 % (0-5); LYMPHOCYTE ABS# 0.84 10x3/uL (1.18-3.74); LYMPHOCYTES 7.7 % (15-50); MCV 87.9 fL (80.0-100.0); MONOCYTES 2.9 % (2-11); NEUTROPHILS 89.2 % (40-80); PLATELET COUNT 234 10x3/uL (130-400); RBC 4.38 10x6/uL (4.00-5.40); RDW 13.4 % (11.5-14.5); WBC 10.9 10x3/uL (4.8-10.8)
[2020-08-21 18:06] LABS: CALC OSMOLALITY 280 mosm/kg (275-300); CALCIUM 9.6 mg/dL (8.5-10.1); CARBON DIOXIDE 21.1 mmol/L (21.0-32.0); CHLORIDE - SERUM 102 mmol/L (98-107); GLUCOSE 120 mg/dL (74-106); POTASSIUM - SERUM 3.9 mmol/L (3.5-5.1); SODIUM 140 mmol/L (136-145); UREA NITROGEN 14 mg/dL (7-18); eGFR NON AFRICAN AMERICAN 73 mL/min (90-120)
[2020-08-21 18:15] LABS: ALBUMIN 4.7 g/dL (3.4-5.0); ALKALINE PHOSPHATASE 64 U/L (30-120); ALT (SGPT) 45 U/L (10-68); AMYLASE - SERUM 55 U/L (25-115); BILIRUBIN - TOTAL 0.31 mg/dL (0.2-1.3); PROTEIN - SERUM 8.5 g/dL (6.4-8.2)
[2020-08-21 18:16] LABS: LIPASE 38 U/L (73-393); TROPONIN-I < 0.017 ng/mL (0.000-0.060)
[2020-08-21 18:41] LABS: BILIRUBIN NEGATIVE (NEGATIVE); KETONE SMALL mg/dL (NEGATIVE); NITRITE NEGATIVE (NEGATIVE); UROBILINOGEN NORMAL mg/dL (< 2)
[2020-08-21 18:42] LABS: WHITE CELLS - URINE 0-5 HPF (0-4)
[2020-08-21 18:43] LABS: BACTERIA FEW HPF (NONE SEEN); HCG URINE NEGATIVE (NEGATIVE)
[2020-08-21 18:44] LABS: UDS - AMPHET NEGATIVE QUAL (NEGATIVE); UDS - BARB NEGATIVE QUAL (NEGATIVE); UDS - BENZO NEGATIVE QUAL (NEGATIVE); UDS - COCAINE NEGATIVE QUAL (NEGATIVE); UDS - OPIATE NEGATIVE QUAL (NEGATIVE); UDS - PCP NEGATIVE QUAL (NEGATIVE); UDS - THC POSITIVE QUAL (NEGATIVE)
[2020-08-21 20:42] VITALS: BP 123/75
== END 2020-08-21 20:42 | disposition home or self-care (01) ==
LOC: D.ER 17:13
PROVIDERS: Family Medicine
DX: F10.129 Alcohol abuse with intoxication, unspecified (principal); Y90.9 Presence of alcohol in blood, level not specified; K21.9 Gastro-esophageal reflux disease without esophagitis; R55 Syncope and collapse